=== PATIENT | male | born 2000 | race Native Hawaiian/Other Pacific Islander ===

== ENCOUNTER 2018-10-31 13:39 | Emergency (ER) | payer SELFPAY ==
[~2018-10-31] VITALS: Ht 157.5 cm; Wt 90.7 kg
== END 2018-10-31 14:11 | disposition home or self-care (01) ==
LOC: ER 13:39
DX: R21 Rash and other nonspecific skin eruption (principal)
CPT/HCPCS: 99282

== ENCOUNTER 2018-11-02 10:07 | Emergency (ER) | payer OTHER ==
[~2018-11-02] VITALS: Ht 157.5 cm; Wt 89.8 kg
== END 2018-11-02 11:47 | disposition home or self-care (01) ==
LOC: ER 10:07
DX: Z11.1 Encounter for screening for respiratory tuberculosis (principal); Z87.891 Personal history of nicotine dependence
CPT/HCPCS: 71046; 99283-25

== ENCOUNTER → 2018-11-13 | Outpatient (CLI) | payer OTHER ==
[2018-11-15 14:07] LABS: QUANTIFERON MITOGEN VALUE >10.00 IU/mL (.); QUANTIFERON NIL VALUE 0.02 IU/mL (.); QUANTIFERON TB1 AG VALUE 9.73 IU/mL (.); QUANTIFERON-TB GOLD PLUS Positive (Negative)
== END ==
LOC: LAB 17:45 → LAB SHORT 17:45
PROVIDERS: Nurse Practitioner Family
DX: R76.11 Nonspecific reaction to tuberculin skin test without active tuberculosis (principal)
CPT/HCPCS: 86480